=== PATIENT | female | born 1940 | race Caucasian/White ===

== ENCOUNTER → 2018-06-14 11:06 | Outpatient (CLI) | payer MEDICARE, SELFPAY ==
[2018-06-14 12:16] LABS: White Blood Cell Count 10.3 X10^3/uL (4.5-11.0)
[2018-06-14 12:17] LABS: Add Manual Diff / Slide Review NO; Basophils Percent Auto 0.4 % (0-2); Eosinophils Percent Auto 0.9 % (2-4); Hematocrit 49.3 % (36-46); Hemoglobin 16.5 g/dL (12.0-16.0); Lymphocytes Percent Auto 12.2 % (25-40); Mean Corpuscular HGB Conc 33.4 % (30-36); Mean Corpuscular Hemoglobin 28.9 PG (26-34); Mean Corpuscular Volume 86.6 fL (80-100); Neutrophils Absolute Auto 8200 /uL (3000-5900); Neutrophils Percent Auto 79.5 % (50-75); Platelet Count 334 X10^3/uL (150-400); Red Cell Distribution Width 13.3 % (11.6-14.8)
[2018-06-14 12:26] LABS: B Type Natriuretic Peptide 43.3 (<100); Erythrocyte Sedimentation Rate 2 MM/HR (0-20)
[2018-06-14 12:51] LABS: BUN Creatinine Ratio 21.3 (6-22); Blood Urea Nitrogen 17 mg/dL (7-17); Calcium 9.8 mg/dL (8.4-10.2); Carbon Dioxide 30 mmol/L (22-32); Chloride 100 mmol/L (98-107); Estimated Glomerular Filt Rate > 60.0 mL/min (>60); Glucose 132 mg/dL (80-110); HEMOLYSIS < 15 (0-50); Potassium 4.6 mmol/L (3.4-5.1); Sodium 144 mmol/L (137-145)
== END ==
PROVIDERS: PCP Internal Medicine; Visit Provider Internal Medicine
DX: R06.09 Other forms of dyspnea (principal)
CPT/HCPCS: 36415; 80048; 83880; 85025; 85651

== ENCOUNTER → 2018-06-15 09:34 | Outpatient (CLI) | payer MEDICARE, SELFPAY ==
--- NOTE | 2018-06-15 | DI.CT.S_ITS ---
PROCEDURE: CT ANGIO CHEST PE PROTOCOL INDICATIONS: DYSPNEA TECHNIQUE: After the administration of intravenous contrast, 2 mm thick sections acquired from the pulmonary apices to the posterior costophrenic angles. 3-dimensional maximum intensity projection (MIP) coronal and sagittal reformats were then acquired through the thorax. For radiation dose reduction, the following was used: automated exposure control, adjustment of mA and/or kV according to patient size. COMPARISON: [facility], CT, ABDOMEN/PELVIS WITH CONTRAST, 11/28/2016, 10:48. FINDINGS: Image quality: Excellent. Pulmonary arteries: Pulmonary arteries are normal in size, and demonstrate no intraluminal filling defects to suggest central pulmonary embolism. Lungs and pleura: There is a large, partially loculated right pleural effusion which demonstrates peripheral nodularity at the right lung base. There is a loculation of pleural fluid within the major fissure. There is right-sided compressive atelectasis versus pneumonia,dominantly seen within the right lower lung. Central and peripheral airways are patent. Mediastinum: Heart size is normal, without pericardial effusion. 14 mm short axis right hilar adenopathy is present. Thoracic aorta is mildly enlarged, measuring 42 mm at the sinuses of Valsalva. Esophagus is normal in caliber, without hiatal hernia. Bones and chest wall: No suspicious bony lesions. The there is severe leftward curvature of the upper thoracic spine and moderate rightward curvature of the lower thoracic spine. Ribs and thoracic spine appear intact throughout. Thyroid gland demonstrates a probable 20 mm diameter nodule within the right lobe laterally.. No axillary or supraclavicular adenopathy. Abdomen: Visualized portions of the upper abdomen demonstrate left parapelvic renal cysts, and are otherwise unremarkable. IMPRESSION: 1. No pulmonary embolus. 2. 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 Thoracentesis and cytology are recommended for further assessment. 3. Right thyroid mass, which could be further assessed with ultrasound. 4. Thoracic scoliosis as above. Dictated by: Mathieu Aguilar M.D. on 06/15/2018 at 10:49 Approved by: Mathieu Aguilar M.D. on 06/15/2018 at 10:55
== END ==
PROVIDERS: PCP Internal Medicine; Visit Provider Internal Medicine
DX: R06.00 Dyspnea, unspecified (principal); J90 Pleural effusion, not elsewhere classified; E07.9 Disorder of thyroid, unspecified; M41.84 Other forms of scoliosis, thoracic region
CPT/HCPCS: 71275; Q9967

== ENCOUNTER → 2018-06-19 16:46 | Outpatient (CLI) | payer MEDICARE, SELFPAY ==
[2018-06-19 17:32] LABS: INR 1.1 (0.9-1.3); Prothrombin Time 12.3 SECONDS (10.1-12.7)
== END ==
PROVIDERS: PCP Internal Medicine; Visit Provider Internal Medicine
DX: J90 Pleural effusion, not elsewhere classified (principal)
CPT/HCPCS: 36415; 85610

== ENCOUNTER → 2018-07-12 16:14 | Outpatient (CLI) | payer MEDICARE, SELFPAY ==
[2018-07-12 18:05] LABS: Platelet Count 363 X10^3/uL (150-400)
[2018-07-12 18:25] LABS: INR 1.2 (0.9-1.3); Prothrombin Time 12.5 SECONDS (10.1-12.7)
== END ==
PROVIDERS: PCP Internal Medicine; Visit Provider Internal Medicine
DX: J90 Pleural effusion, not elsewhere classified (principal)
CPT/HCPCS: 36415; 85049; 85610

== ENCOUNTER → 2018-07-16 08:59 | Outpatient (CLI) | payer MEDICARE, SELFPAY ==
--- NOTE | 2018-07-16 | DI.US.S_ITS ---
PROCEDURE: US THORACENTESIS INDICATIONS: PLEURAL EFFUSION/LUNG CANCER TECHNIQUE: The indications, alternatives, benefits, risks, and complications of the procedure were explained to the patient. Written informed consent was obtained and placed in the chart. The chest was examined sonographically, and an appropriate site was chosen for thoracentesis. The skin was prepared and draped in the usual sterile fashion, and 1% lidocaine was infiltrated from the skin down through the pleural surface. A 19-gauge catheter-covered needle was then introduced into the pleural space, the catheter was advanced and the needle was withdrawn, and thereafter pleural fluid was aspirated. The catheter was then removed and a dressing was applied. COMPARISON: [facility], CR, XR CHEST 1V, 07/16/2018, 10:59. FINDINGS: Access site: Right hemithorax. Needle: One-Step centesis catheter with introducer needle. Fluid volume and description: 1300 cc of serous fluid Fluid sent for diagnostic testing: Not requested Medications: 1% lidocaine for local anaesthesia. Complications: None; post-procedural chest radiograph is pending to assess for pneumothorax. IMPRESSION: Successful ultrasound-guided thoracentesis. Dictated by: Wei Mata M.D. on 07/16/2018 at 16:55 Approved by: Wei Mata M.D. on 07/16/2018 at 16:57
--- NOTE | 2018-07-16 | DI.RAD.S_ITS ---
PROCEDURE: XR CHEST 1V INDICATIONS: POST THORACENTESIS TECHNIQUE: One view of the chest was acquired. COMPARISON: [facility], CR, XR CHEST 1 VIEW, 06/21/2018, 15:54. FINDINGS: Surgical changes and devices: None. Lungs and pleura: No pleural effusions or pneumothorax. Redemonstration of right upper lobe masslike opacity. There is also small right pleural effusion with adjacent atelectasis which appears improved, status post thoracentesis. Left lung appears clear.. Mediastinum: Mediastinal contours appear normal. Heart size is normal. Bones and chest wall: No suspicious bony lesions. Overlying soft tissues appear unremarkable. Scoliosis as before. IMPRESSION: No pneumothorax, status post thoracentesis. Dictated by: Wei Mata M.D. on 07/16/2018 at 10:37 Approved by: Wei Mata M.D. on 07/16/2018 at 10:38
== END ==
PROVIDERS: PCP Internal Medicine; Visit Provider Internal Medicine
DX: C34.90 Malignant neoplasm of unspecified part of unspecified bronchus or lung (principal); J90 Pleural effusion, not elsewhere classified
CPT/HCPCS: 32555; 71045

== ENCOUNTER 2019-10-14 21:38 | Emergency (ER) | payer MEDICARE, SELFPAY ==
[2019-10-14 21:56] VITALS: BP 178/72; PULSE 74; RESP 16; TEMP 36.6; O2SAT 98; BMI 25.0
[2019-10-14 22:52] LABS: RBC Urine 1-5/HPF (0-5/HPF); Squamous Epithelial Cell Urine 0-1 /HPF (0-5/HPF); WBC Urine >100/HPF (0-5/HPF)
[2019-10-14 22:53] LABS: Bacteria Urine Moderate (10-30); Culture Indicated Urine Specimen Cultured
[2019-10-14 23:30] VITALS: BP 157/70; PULSE 80; RESP 16; O2SAT 98
--- NOTE | 2019-10-15 00:53 | ED.FEMALEGU ---
HPI - Female Genitourinary General Chief complaint: Urogenital-Female Stated complaint: UTI Time Seen by Provider: 10/15/19 00:41 Source: patient Mode of arrival: Ambulatory Limitations: no limitations History of Present Illness HPI Narrative: The patient developed low abdominal pain, a frequent urination earlier today. She says she has been prone to urinary tract infections all of her life. She has no fever or chills. She denies nausea vomiting. She has no associated back pain. This evening she developed hematuria along with the other urinary symptoms. She is on medications for lung cancer. She is not anticoagulated. She cannot remember a history of pyelonephritis. She has no other symptoms. Related Data Previous Rx's Medication Instructions Recorded sulfamethoxazole-trimethoprim 1 tab PO BID 7 Days #14 tab 10/15/19 Allergies Allergy/AdvReac Type Severity Reaction Status Date / Time erythromycin base Allergy Mild tinnitus Verified 10/14/19 21:55 [ERYTHROMYCIN BASE] Penicillins [PENICILLINS] Allergy Mild rash Verified 10/14/19 21:55 Macrolide Antibiotics Allergy Unknown Verified 10/14/19 21:55 [MACROLIDE ANTIBIOTICS] Review of Systems Review of Systems ROS Unobtainable: All systems reviewed & are unremarkable except as noted in HPI and below Constitutional Constitutional: Denies chills, Denies fever(s), Denies lethargy and Denies weakness Cardiovascular Cardiovascular: Denies chest pain, Denies lightheadedness, Denies dyspnea and Denies orthopnea Respiratory Respiratory: Denies cough, Denies dyspnea and Denies wheezing Gastrointestinal Gastrointestinal: Reports abdominal pain, Denies change in bowel habits, Denies diarrhea, Denies nausea and Denies vomiting Genitourinary Genitourinary: Reports hematuria, Reports dysuria and Reports urinary urgency Musculoskeletal Musculoskeletal: Denies back pain Integumentary/Breasts Skin/Breast: Denies erythema and Denies rash Neurologic Neurologic: Denies weakness Allergic/Immunologic Allergic/Immunologic: Denies wheezing Patient History Medical History GERD (gastroesophageal reflux disease) (Acute) Lung cancer (Acute) Surgical History (Updated 10/15/19 @ 00:59 by Michael Alston MD) No significant past surgical history (Acute) Substance Use Type: does not use Exam Initial Vital Signs Initial Vital Signs: Vital Signs Temperature 97.8 F 10/14/19 21:56 Pulse Rate 74 10/14/19 21:56 Respiratory Rate 16 10/14/19 21:56 Blood Pressure 178/72 H 10/14/19 21:56 Pulse Oximetry 98 10/14/19 21:56 Const General: cooperative and well developed Nutritional Appearance: well nourished Resp Effort & Inspection: normal respiratory effort and able to speak in complete sentences Auscultation: clear to auscultation bilaterally, no rales, no rhonchi and no wheezes Cardio Rate: regular rate Rhythm: regular rhythm Heart Sounds: S1 normal and S2 normal GI Palpation: soft, no hepatosplenomegaly, No pulsatile mass and tender (Suprapubic tenderness without guarding or rebound) Auscultation: normal bowel sounds Back/Spine/Pelvis Back: No CVA tenderness Skin General: no rashes or lesions noted, No mottling and No petechiae Neuro General: alert, awake and oriented x3 Psych Mental Status: mental status grossly normal Course Course Course Narrative: The patient was started on Bactrim DS for cystitis. She is advised to take Tylenol for pain, and drink plenty of fluids. She is advised to return symptoms escalate. Orders Ordered: ED Orders 10/14/19 22:41 Urine Culture Stat Urine Microscopic Stat Discontinued Medications Trimethoprim/Sulfamethoxazole (Bactrim Ds) 1 tab PO NOW ONE Stop: 10/15/19 00:52 Vital Signs Vital signs: Vital Signs - 8 hr 10/14/19 21:56 10/14/19 23:30 Temperature 97.8 F Pulse Rate 74 80 Respiratory Rate 16 16 Blood Pressure 178/72 H Blood Pressure [Left Arm] 157/70 H Pulse Oximetry 98 98 MDM - Female Genitourinary Lab Data Labs: Lab Results 10/14/19 Range/Units 22:41 Urine RBC 1-5/hpf (0-5/HPF) Urine WBC >100/hpf H (0-5/HPF) Ur Squamous Epith Cells 0-1 /hpf (0-5/HPF) Urine Bacteria Moderate (10-30) H (None) Ur Culture Indicated? Specimen cultured Urine Dip Bedside Urine Glucose Negative Bedside Urine Bilirubin - Negative Bedside Urine Ketone - Negative Urine Specific Concrete 1.005 Bedside Urine Occult Blood +++ Bedside Urine pH 6.5 Bedside Urine Protein +/- 15 Bedside Urine Urobilinogen - Negative Bedside Urine Nitrite - Negative Bedside Urine Leukocytes +++ 500 Esterase Discharge Plan Departure Patient Disposition: Home Clinical Impression: Urinary tract infection Qualifiers: Urinary tract infection type: acute cystitis Hematuria presence: with hematuria Qualified Code(s): N30.01 - Acute cystitis with hematuria Instructions: DI for Urinary Tract Infection (UTI) Activity Restrictions/Additional Instructions: Drink plenty of fluids and stay well hydrated. Tylenol 2 tablets every 4 hours as needed for pain. Bactrim DS 2 tabs daily, this is the antibiotic for the bladder infection. Return the ER if if increasing pain, vomiting, or fever. Prescriptions: New sulfamethoxazole-trimethoprim 800-160 mg tablet 1 tab PO BID 7 Days Qty: 14 RF: 0 Referrals: Noe Carney MD [Primary Care Provider] -
[2019-10-15] MEDS: TRIMETH/SULFA 160/800 (DS) TABLET 1 TAB PO (01:00)
[2019-10-15 01:13] VITALS: BP 154/70; PULSE 94; RESP 16; O2SAT 99
== END 2019-10-15 01:14 | disposition home or self-care (01) ==
PROVIDERS: Emergency Provider Emergency Medicine; PCP Internal Medicine
DX: N30.01 Acute cystitis with hematuria (principal)
CPT/HCPCS: 81003; 81015; 87077; 87086; 87186; 99283